=== PATIENT | male | born 1945 | race Hispanic/Latino ===

== ENCOUNTER 2020-12-16 07:25 | Emergency (ER) | payer MEDICARE ==
[~2020-12-16] VITALS: Ht 177.8 cm; Wt 93.4 kg
[2020-12-16] MEDS ORDERED: LACTATED RINGERS 1000ML 1,000 ML IV SCH (07:30)
[2020-12-16] MEDS ORDERED: PANTOPRAZOLE 40 MG/VIAL IVP SCH (07:30)
[2020-12-16] MEDS ORDERED: ONDANSETRON 4MG INJ IVP SCH (07:30)
[2020-12-16 07:49] VITALS: BP 170/93
[2020-12-16 07:56] LABS: APPEARANCE,URINE Clear (CLEAR); BILIRUBIN,URINE Negative (NEGATIVE); COLOR,URINE Yellow (YELLOW); GLUCOSE, URINE (UA) Negative (NEGATIVE); KETONES,URINE Negative (NEGATIVE); LEUKOCYTE ESTERASE ,URINE Negative (NEGATIVE); NITRATE,URINE Negative (NEGATIVE); OCCULT BLOOD,URINE Negative (NEGATIVE); PH,URINE 7.5 (5.0-8.0); PROTEIN,URINE Trace mg/dL (NEGATIVE)
[2020-12-16 08:06] LABS: BACTERIA,URINE None Seen /HPF (None Seen); RBC,URINE 0-1 /HPF (0-1); SQUAMOUS EPITHELIAL CELL,UR 0-2 /HPF (0-2); WBC,URINE 0-1 /HPF (0-1)
[2020-12-16 08:08] LABS: HYALINE CASTS, URINE 0-1 /LPF (0-1 /LPF)
[2020-12-16 08:08] LABS: BASOPHILS % (AUTO) 0.2 % (0.0-5.0); EOSINOPHILS % (AUTO) 0.1 % (0.0-8.0); HEMATOCRIT 46.3 % (42-54); MEAN CORPUSCULAR HEMOGLOBIN 30.8 pg (27.0-33.0); MEAN CORPUSCULAR HGB CONC 34.8 g/dL (32.0-36.0); MEAN CORPUSCULAR VOLUME 88.7 fL (79-99); MONOCYTES % (AUTO) 5.4 % (3.0-13.0); PLATELET COUNT (AUTO) 229 K/uL (130-400); RED BLOOD CELL COUNT(AUTO) 5.22 MIL/uL (4.50-6.20); RED CELL DISTRIBUTION WIDTH 12.9 % (11.0-15.5)
[2020-12-16 08:23] LABS: INR 1.02 (0.85-1.15); PROTHROMBIN TIME 11.1 SEC (9.6-11.6)
[2020-12-16 08:24] LABS: PARTIAL THROMBOPLASTIN TIME 24.2 SEC (26.3-35.5)
[2020-12-16 08:30] LABS: ALBUMIN 4.2 g/dL (3.5-5.0); B-TYPE NATRIURETIC PEPTIDE < 5 pg/mL (0-100); BILIRUBIN,TOTAL 1.9 mg/dL (0.2-1.0); POTASSIUM 3.5 mmol/L (3.5-5.1); TOTAL PROTEIN, SERUM 8.3 g/dL (6.0-8.3)
[2020-12-16] MEDS ORDERED: DIATR MEGLU/DIATRIZOATE SODIUM 30 ML BOTTLE ONE (09:23)
[2020-12-16 09:53] VITALS: BP 175/89
[2020-12-16] MEDS ORDERED: ADENOSINE 6MG VIAL IV ONE (09:55)
[2020-12-16] MEDS ORDERED: HEPARIN 5,000 UNIT VIAL ONE (09:57)
[2020-12-16] MEDS ORDERED: NITROGLYCERIN 50MG/D5W 250ML 0 BOT ONE (09:58)
[2020-12-16 12:16] VITALS: BP 158/70
[2020-12-16] MEDS ORDERED: IOHEXOL-350 75 ML VIAL IV ONE (13:06)
[2020-12-16 14:17] VITALS: BP 160/82
[2020-12-16 16:00] VITALS: BP 140/85
[2020-12-16 16:07] VITALS: BP 166/85
[2020-12-16] MEDS ORDERED: PANT40TA PO (16:09)
== END 2020-12-16 17:02 | disposition home or self-care (01) ==
LOC: EDH 07:25
DX: R10.33 Periumbilical pain (principal); R10.13 Epigastric pain; Z20.822 Contact with and (suspected) exposure to COVID-19; R42 Dizziness and giddiness; E03.9 Hypothyroidism, unspecified; E78.00 Pure hypercholesterolemia, unspecified; I10 Essential (primary) hypertension; Z79.899 Other long term (current) drug therapy; Z88.5 Allergy status to narcotic agent
CPT/HCPCS: 36415; 70450; 71045; 74177; 76705; 80053; 81001; 82150; 82550; 83690; 83880; 84439; 84443; 84481; 84484; 85025; 85610; 85730; 87635; 93005; 96361; 96374; 96375; C9113; C9803; J0153; J1644; J2405; J3490; J7120; Q9963; Q9967

== ENCOUNTER 2023-06-18 11:29 | Emergency (ER) | payer MEDICARE ==
[~2023-06-18] VITALS: Ht 175.3 cm; Wt 88.5 kg
[~2023-06-18 11:29] MED LIST: PANT40TA PO
[2023-06-18 12:46] LABS: BASOPHILS # (AUTO) 0.03 K/uL (0.00-0.20); BASOPHILS % (AUTO) 0.4 % (0.0-5.0); EOSINOPHILS # (AUTO) 0.01 K/uL (0.00-0.70); EOSINOPHILS % (AUTO) 0.1 % (0.0-8.0); HEMATOCRIT 46.1 % (42-54); IMMATURE GRANULOCYTE ABSOLUTE 0.02 K/uL (0-1); LYMPHOCYTES # (AUTO) 1.3 K/uL (1.0-4.8); LYMPHOCYTES % (AUTO) 15.6 % (21.0-51.0); MEAN CORPUSCULAR HEMOGLOBIN 31.2 pg (27.0-33.0); MEAN CORPUSCULAR HGB CONC 34.7 g/dL (32.0-36.0); MEAN CORPUSCULAR VOLUME 89.9 fL (79-99); MONOCYTES # (AUTO) 0.5 K/uL (0.1-1.0); MONOCYTES % (AUTO) 6.4 % (3.0-13.0); NEUTROPHILS # (AUTO) 6.6 K/uL (1.8-7.7); NEUTROPHILS % (AUTO) 77.3 % (40.0-77.0); PLATELET COUNT (AUTO) 221 K/uL (130-400); RED BLOOD CELL COUNT(AUTO) 5.13 MIL/uL (4.50-6.20); WHITE BLOOD COUNT (AUTO) 8.5 K/uL (4.8-10.8)
[2023-06-18 12:50] LABS: INR 0.96 (0.85-1.15); PROTHROMBIN TIME 11.2 SEC (9.6-11.6)
[2023-06-18 12:51] LABS: POTASSIUM 3.5 mmol/L (3.5-5.1)
[2023-06-18 12:52] LABS: PARTIAL THROMBOPLASTIN TIME 25.7 SEC (26.3-35.5)
[2023-06-18 12:56] LABS: ALBUMIN 3.9 g/dL (3.5-5.0); BILIRUBIN,TOTAL 1.6 mg/dL (0.2-1.0); MAGNESIUM 1.9 mg/dL (1.80-2.40); TOTAL PROTEIN, SERUM 7.6 g/dL (6.0-8.3)
[2023-06-18 13:12] LABS: B-TYPE NATRIURETIC PEPTIDE 12 pg/mL (0-100)
[2023-06-18 15:25] VITALS: BP 130/79; PULSE 70; RESP 17; O2SAT 97
== END 2023-06-18 15:52 | disposition home or self-care (01) ==
LOC: EDH 11:29
DX: R07.89 Other chest pain (principal); R00.2 Palpitations; R17 Unspecified jaundice; E11.65 Type 2 diabetes mellitus with hyperglycemia; I10 Essential (primary) hypertension; E78.00 Pure hypercholesterolemia, unspecified; E03.9 Hypothyroidism, unspecified; Z98.890 Other specified postprocedural states; Z88.6 Allergy status to analgesic agent
CPT/HCPCS: 36415; 71045; 80053; 83735; 83880; 84484; 85025; 85610; 85730; 93005